=== PATIENT | male | born 2000 | race Caucasian/White ===

== ENCOUNTER 2020-12-04 19:01 | Emergency (ER) | payer OTHER ==
[~2020-12-04] VITALS: Ht 185.4 cm; Wt 69.7 kg
[2020-12-04] MEDS ORDERED: MEDR4PAK PO (20:46)
[2020-12-04] MEDS ORDERED: DOXY1CAP62 PO (20:48)
[2020-12-04] MEDS ORDERED: DOXYCYCLINE HYCLATE 100MG TABLET PO ONE (20:55)
[2020-12-04 21:00] VITALS: BP 120/77
== END 2020-12-04 21:02 | disposition home or self-care (01) ==
LOC: M ED 20:54
DX: L03.113 Cellulitis of right upper limb (principal); T78.40XA Allergy, unspecified, initial encounter